=== PATIENT | female | born 1930 | race Caucasian/White ===

== ENCOUNTER → 2018-09-28 07:26 | Day surgery (SDC) | payer MEDICARE ==
--- NOTE | 2018-09-25 17:35 | HP ---
AMENDED REPORT NOW INCLUDES DESIGNATED COSIGNER CC: Dr. Mead; Dr. Santana * PREOPERATIVE HISTORY AND PHYSICAL: DATE OF ADMISSION/SURGERY: 09/28/18 This patient is scheduled for same-day surgery admission by Dr. Beck on Monday , 09/28/18. DATE OF PREOPERATIVE HISTORY AND PHYSICAL EXAMINATION: 09/25/18. ATTENDING SURGEON: Dr. Tiesha Beck * (dictated by Krystal White NP). CHIEF COMPLAINT: Left breast cancer. HISTORY OF PRESENT ILLNESS: The patient is an 87-year-old female, recently evaluated by Dr. Beck for a new left breast cancer. The patient had not noticed any breast changes, but had a mammogram on 09/06/18 that revealed an abnormality in the left breast that was subsequently biopsied that revealed invasive breast cancer. The patient reports that she has had left breast pain as an ongoing issue, possibly related to a back injury in 2001. Her mother had breast cancer in her 60s and 2 paternal aunts had breast cancer in their 80s. Menarche was at age 17 and she underwent hysterectomy in 1970. First delivery was at age 23. She reports that she was on Premarin for approximately 30 years. She did breast-feed her children. She has never had any radiation to the chest. She denies any history of ovarian cancer in her family. Dr. Beck examined the patient and discussed the findings with her and the patient also met with Dr. Fowler; the patient has elected to have needle localization excision of the left breast cancer and sentinel lymph node biopsy as a same-day surgery procedure. Dr. Beck discussed the nature of breast cancer, surgical options, and the nature of the breast procedure that the patient has chosen. She described the relevant risks and benefits and today, I reviewed the typical postoperative care and recovery. The patient had had a chance to ask questions and stated that she understands the information and is satisfied with the answers given to her questions. She will sign surgical consent on the day of surgery. PAST MEDICAL HISTORY: Significant for hypertension, pacemaker placement for sick sinus syndrome, paroxysmal atrial fibrillation for which she takes Eliquis , hyperlipidemia, and chronic pain related to osteoarthritis and spine stenosis. She is followed for primary care by Dr. Mead. She is followed for cardiology by Dr. Enrike Santana. PAST SURGICAL HISTORY: Pacemaker placement in 2014, decompressive lumbar laminectomy in 2011, right hip replacement in 2004, left hip replacement in 2005 , hysterectomy in 1970, and appendectomy in 1966. MEDICATIONS: 1. Eliquis 5 mg p.o. every 12 hours and she took her last preoperative dose on the morning of 09/25/18. 2. Atorvastatin 10 mg p.o. daily. 3. Clonidine ER 0.1 mg p.o. b.i.d. 4. Nifedipine ER osmotic release 30 mg p.o. b.i.d. 5. Fentanyl patch 12 mcg transdermally, change every 3 days. 6. Acetaminophen 650 mg every 6 hours p.r.n. pain or fever. She also takes the following supplements: 1. Vitamin D3. 2. MiraLAX. 3. Tums. 4. Multivitamin. 5. Fiber supplement. 6. Caltrate plus vitamin D. 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 She also reports some unspecified reaction to CODEINE, MORPHINE, and CYMBALTA and also another food allergy to MILK and other DAIRY PRODUCTS. FAMILY HISTORY: Her mother had colon cancer. Her father from stroke. Daughter had metastatic cervical cancer and in 2014. No known anesthesia complications, bleeding tendencies, or clotting disorders in the family. SOCIAL HISTORY: She is and is a retired teacher. She was a "social smoker" over 40 years ago. She denies the use of alcohol or other substances. REVIEW OF SYSTEMS: Constitutional: No fevers or chills. She tires easily. No significant weight loss. Endocrine: No known thyroid disease or diabetes. Hematologic: No easy bruising or bleeding while on Eliquis. No history of blood transfusions. Breasts: Abnormal left breast mass. Respiratory: No shortness of breath. No palpitations. No chronic cough. Cardiovascular: No chest pressure or pain. No palpitations. Gastrointestinal: No nausea, vomiting, or diarrhea. She uses MiraLAX with good results for constipation. No change in bowel habits. Genitourinary: She reports discomfort just before she urinates, which resolves with urination. Musculoskeletal: Diffuse bone and joint pain related to osteoarthritis and spinal stenosis. Neurologic: Mild dizziness at times, which she relates to the fentanyl patch. General: She is followed by Dr. Santana from Cardiology. Her last visit there was . Please review the accompanying cardiology note. Her last stress test was in June 2017, which revealed a normal exercise nuclear stress test with an ejection fraction of 82%. Echocardiogram was done in June 2017, visual EF 65 % to 70% of normal septal wall motion due to right ventricle pacemaker. She is due for pacemaker interrogation and followup Cardiology appointment on . She denies any history of anesthesia complications. She denies any history of deep vein thrombosis or pulmonary embolism. PHYSICAL EXAMINATION GENERAL SURVEY: The patient is an 87-year-old female, well developed, well nourished, in no acute distress. VITAL SIGNS: Height 63 inches, weight 137 pounds, body mass index 24.3. Blood pressure 126/80, pulse 90 and regular, respiratory rate 18, temperature 97.1. HEENT: Benign. NECK: Supple. No cervical lymphadenopathy. No thyromegaly. LUNGS: Breath sounds bilaterally clear and equal. HEART: Regular rate and rhythm. No murmurs or rubs appreciated. BREASTS: Left breast, no palpable masses, well-healed biopsy site in the upper outer quadrant, no infection. Right breast, no palpable masses. Nipples are normal bilaterally. There is a scar in the left infraclavicular area consistent with a pacemaker. No supraclavicular lymphadenopathy. No palpable axillary lymphadenopathy. ABDOMEN: Active bowel sounds, soft, nontender, nondistended. No obvious masses or organomegaly or evidence of ventral hernia. BACK: No CVA tenderness. PELVIC: Exam deferred. RECTAL: Exam deferred. EXTREMITIES: Warm without edema or skin ulceration. NEUROLOGIC: Alert and oriented x3. Steady gait. SKIN: Warm, dry, intact. IMPRESSION: Left breast cancer. PLAN: Same-day surgery admission to Dr. Beck's service on 09/28/18, for needle localization excision of left breast cancer and sentinel lymph node biopsy. The patient took her last dose of Eliquis on the morning of 09/25/18. BORIS WHITE NP [id number]/[facility] #: [id number] [place]
[~2018-09-28 07:26] MED LIST: Acetaminophen IV 1GM/100ML * 100 ML ONE; Acetaminophen TAB* 325 MG PO PRN; Buffered Lidocaine 0.9% SYRIN* 5 ML/SYR SYRINGE INTRADERM ONE; Bupivacaine 0.5% W/EPI SDV* 30 ML VIAL ONE; Dexamethasone IV* 4 MG/ML 1 ML (4 MG) ONE; Famotidine IV* 10 MG/ML 2 ML (20 mg) IV ONE; Famotidine IV* 10 MG/ML 2 ML (20 mg) ONE; KETAMINE HCL* 50 MG/ML 10 ML VIAL ONE; Ketorolac INJ* 30 MG/ML 1 ML VIAL ONE; Labetalol IV* 5 MG/ML 20 ML VIAL ONE; Lidocaine 1% INJ* 10 MG/ML 30 ML SDV ONE; Lidocaine 2% PF * 5 ML VIAL ONE; Lidocaine 2.5%/Prilocain 2.5%* 5 GM TUBE ONE; Midazolam* 1 MG/ML 5 ML VIAL (5 MG) ONE; Naloxone* 0.4 MG/ML 1 ML VIAL IV PRN; Ondansetron INJ* 2 MG/ML VIAL IV PRN; Ondansetron INJ* 2 MG/ML VIAL ONE; Propofol* 10 MG/ML 20 ML BTL IV PUSH ONE; ceFAZolin 2 GM PREMIX in ORs 2 GM/50 ML BAG IVPB ONE; fentaNYL* 50 MCG/ML 2 ML VIAL (100 MCG VIAL) IV PRN; fentaNYL* 50 MCG/ML 2 ML VIAL (100 MCG VIAL) ONE
[2018-09-28 09:00] LABS: Urine Appearance Clear; Urine Blood Negative (Negative); Urine Color Yellow; Urine Ketones Negative (Negative); Urine Protein Negative (Negative); Urine Red Blood Cell Absent (Absent); Urine Specific Gravity 1.016 (1.010-1.030); Urine Urobilinogen Negative (Negative); Urine White Blood Cell 1+(6-10/hpf) (Absent)
--- NOTE | 2018-09-28 16:33 | OP ---
Operative Report - Blank - Operative Report Date of Operation: 09/28/18 Note: Brief Operative Note Preop Dx: Left Breast cancer Postop Dx: same Procedure: wide excision Left breast cancer (after needle-localization); sentinel lymph node biopsy Anesthesia: Local; MAC Surgeon: Kiran Computer Equipment Installer: MARCELINA Do Fluids: 800 ml crystalloid EBL: < 50 ml Specimen: Left breast tissue; sentinel lymph node Drains: none Findings: dictated
[2018-09-28 18:01] VITALS: BP 187/90
--- NOTE | 2018-09-29 13:37 | OP ---
CC: [facility]; Michael Mead MD * DATE OF OPERATION: 09/28/18 - [facility] DATE OF : 32 SURGEON: Tiesha Beck MD. BACTERIOLOGIST PHARMACEUTICAL: MARCELINA Beal. PRE-OP DIAGNOSIS: Left breast cancer. POST-OP DIAGNOSIS: Left breast cancer. OPERATIVE PROCEDURE: Needle localization excision of left breast cancer and sentinel lymph node biopsy. INDICATIONS: Ms. Garcia is an 87-year-old woman, recently diagnosed with breast cancer, who opted for breast conserving treatment. DESCRIPTION OF PROCEDURE: On the day of surgery, she underwent needle localization and sentinel lymph node localization without difficulty. She was then brought to the operating room and placed on the OR table in supine position and given IV sedation. The left breast was prepped and draped in usual sterile fashion taking care not to dislodge the localizing wire. After infiltrating with local anesthetic, a curvilinear incision was made around the wire in an elliptical fashion. The subcutaneous tissue was divided with electrocautery to excise the mass of tissue from around the wire. This was sent to Radiology to confirm that it contained the clip and wire. Meanwhile hemostasis was achieved with electrocautery. Then, it was recognized that the sentinel node was within reach of the breast incision, so dissection in the region of the axilla was begun using electrocautery after infiltrating with additional local anesthetic. The axillary fat pad was identified and grasped with an Allis clamp and the sentinel node was localized. Its in-situ count was around 1830, the ex vivo counts were 1459, and the axillary bed count was 1. This confirmed that the sentinel node had been retrieved. The wound was irrigated with saline and additional local was instilled into the cavity. Clips were placed in the cavity to darryl its confines and it should be mentioned that in the process of excising the sentinel node, clips were used to control the blood and lymphatic vessels that approached the gland. Closure was accomplished with 3-0 Vicryl in the subcutaneous layer and the skin was closed with 4-0 Prolene in a subcuticular fashion. Steri-Strips and a dry sterile dressing were applied. All sponge and instrument counts were correct. The patient tolerated the procedure well and was transferred to Recovery in a stable condition. [id number]/[facility] #: [id number] [facility]
== END | disposition home or self-care (01) ==
LOC: SDS 07:26
PROVIDERS: ATTEND Surgery
DX: C50.912 Malignant neoplasm of unspecified site of left female breast (principal); I10 Essential (primary) hypertension; I49.5 Sick sinus syndrome; Z95.0 Presence of cardiac pacemaker; I48.91 Unspecified atrial fibrillation; Z79.01 Long term (current) use of anticoagulants; R30.9 Painful micturition, unspecified; E78.5 Hyperlipidemia, unspecified; M19.90 Unspecified osteoarthritis, unspecified site; Z87.891 Personal history of nicotine dependence
CPT/HCPCS: 77061; 78195; 81003; 81015; 87086; 88307; 88342; A9270-GY; A9541; G0279; J0690; J1100; J1885; J2250; J2405; J2704; J3010